=== PATIENT | male | born 1990 | race Caucasian/White ===

== ENCOUNTER 2018-08-29 18:14 | Emergency (ER) | payer OTHER ==
[~2018-08-29] VITALS: Ht 182.9 cm; Wt 100.0 kg
[2018-08-29 18:14] VITALS: BP 0/0
--- NOTE | 2018-08-29 19:31 | PHYS DOC ---
Adult General Chief Complaint Chief Complaint 28 years old inmates was brought by EMS during the code he was found unresponsive 55 minutes ago CoDE started immediately, upon EMS arrival he was in asystole patient received 8 doses of epinephrine 1 mg CPR with auto thump continued patient was intubated Upon arrival to the emergency department he remained in asystole we continued the code HPI HPI 28 years old inmates was found unresponsive CPR for 55 minutes rhythm is asystole 8 doses of epinephrine was given CPR continued Review of Systems Review of Systems Unable to be done due to patient's status Physical Exam Physical Exam HENT: Normocephalic, atraumatic, Eyes: Dilated fixed pupils] Neck: Normal range of motion, no tenderness, supple, no stridor. [] Cardiovascular: Asystole rhythm Lungs & Thorax: Bilateral breath sounds clear to auscultation [] Abdomen: Bowel sounds normal, soft, distended Skin: The blue extremities no peripheral pulses [] [] EKG EKG [] Radiology/Procedures Radiology/Procedures [] Course & Med Decision Making Course & Med Decision Making Continue the emergency department for 24 minutes remains in asystole rhythm. Total code time was 79 minutes [] Final Impression Final Impression [] Problems: (1) Cardiac arrest Dragon Disclaimer Dragon Disclaimer This electronic medical record was generated, in whole or in part, using a voice recognition dictation system. ITALIA HERRERA MD Aug 29, 2018 19:31
[2018-08-29 19:53] LABS: MEAN CORPUSCULAR HEMOGLOBIN 30 pg (25-35)
[2018-08-29 19:54] LABS: CALCIUM 8.3 mg/dL (8.5-10.1); CREATININE 1.8 mg/dL (0.7-1.3); GFR 44.8
[2018-08-29 19:55] LABS: POTASSIUM 5.4 mmol/L (3.5-5.1)
[2018-08-29 19:57] LABS: HEMATOCRIT 37.2 % (39.0-53.0); HEMOGLOBIN 12.1 g/dL (13.0-17.5); MEAN CORPUSCULAR VOLUME 93 fL (79-100); RED BLOOD COUNT 3.99 x10^6/uL (4.30-5.70); WHITE BLOOD COUNT 4.7 x10^3/uL (4.0-11.0)
[2018-08-29 19:58] LABS: MEAN CORPUSCULAR HGB CONC 33 g/dL (31-37); RED CELL DISTRIBUTION WIDTH 13.7 % (11.5-14.5)
[2018-08-29 19:59] LABS: BASO % 1 % (0-3); EOS # 0.2 x10^3/uL (0.0-0.7); EOS % 4 % (0-3); LYMPH # 3.4 x10^3/uL (1.0-4.8); LYMPH % 73 % (24-48); MONO # 0.2 x10^3/uL (0.0-1.1); MONO % 5 % (0-9); NEUT # 0.8 x10^3uL (1.8-7.7); NEUT % 18 % (31-73); PLATELET COUNT 107 x10^3/uL (140-400)
[2018-08-29 20:00] LABS: BASO # 0.1 x10^3/uL (0.0-0.2)
[2018-08-29 20:33] LABS: % BASOS 1 % (0-3); % EOS 3 % (0-5); % LYMPHS 70 % (24-48); % MONOS 6 % (0-10); % MYELOS 2 % (0-0); % SEGS 14 % (35-66); NUCLEATED RBC 8
[2018-08-29 20:58] LABS: PLT ESTIMATE ADEQUATE (ADEQUATE)
[2018-08-29 22:17] LABS: % ATYL 4 % (0-0)
[2018-08-29] MEDS ORDERED: EPINEPHrine SYRINGE 1 MG/10 ML SYRINGE ONE (23:00)
== END 2018-08-30 16:45 | disposition expired ==
LOC: EEVIPCON 18:14 → EDBD 18:14 → ER 18:14
DX: I46.9 Cardiac arrest, cause unspecified (principal)
CPT/HCPCS: 36415; 51702; 80048; 85007; 85025; 92950; 99285; J0171